=== PATIENT | female | born 1995 | race Hispanic/Latino ===

== ENCOUNTER 2019-03-17 09:37 | Emergency (ER) | payer BC, OTHER ==
[2019-03-17 10:20] LABS: Urine Bacteria 20-50 /HPF (<20); Urine Culture Reflex Order REFLEXED; Urine RBC <5 /HPF (NONE SEEN)
[2019-03-17 10:21] LABS: Urine Amorphous Sediment 3+ /HPF (NONE SEEN)
[2019-03-17 10:21] LABS: Urine Blood 1+ (NEG); Urine Glucose NEGATIVE (NEG); Urine Protein 1+ (NEG); Urine Specific Gravity 1.025 (1.005-1.030); Urine pH 7.5 (5.0-7.0)
--- NOTE | 2019-03-17 10:34 | ER ---
Nurse's Notes [facility] Name: Letty Carrizales Age: 23 yrs Sex: Female : 1995 Arrival Date: 03/17/2019 Time: 09:42 Bed 16 Private MD: Diagnosis: Lower abdominal pain, unspecified;Irregular menstruation, unspecified Presentation: 03/17 09:48 Presenting complaint: Patient states: when i woke up this AM around 6:30 am; i have hj sharp pain on my lower stomach, im bleeding a little bit; LMP- 03/01/19; denies diarrhea, denies N/V;. Transition of care: patient was not received from another setting of care. Onset of symptoms was March 17, 2019. Risk Assessment: Do you want to hurt yourself or someone else? Patient reports no desire to harm self or others. Initial Sepsis Screen: Does the patient meet any 2 criteria? No. Patient's initial sepsis screen is negative. Does the patient have a suspected source of infection? No. Patient's initial sepsis screen is negative. Care prior to arrival: None. 09:48 Method Of Arrival: Ambulatory 09:48 Acuity: TIFFANY 3 hj GEOTECHNICAL INTERN: 09:49 LMP 03/01/2019 Historical: - Allergies: 09:49 No Known Allergies; hj - PMHx: 09:49 None; hj - PSHx: 09:49 None; hj - Immunization history:: Adult Immunizations unknown. - Social history:: Smoking status: unknown. - Ebola Screening: : No symptoms or risks identified at this time. Screenin:00 Abuse screen: Denies threats or abuse. Denies injuries from another. Nutritional ph screening: No deficits noted. Tuberculosis screening: No symptoms or risk factors identified. Fall Risk None identified. Assessment: 10:00 General: Appears in no apparent distress. comfortable, well groomed, Behavior is calm, ph cooperative, appropriate for age, Denies fever, feeling ill. Pain: Complains of pain in suprapubic area Pain does not radiate. Neuro: Level of Consciousness is awake, alert, obeys commands, Oriented to person, place, time, situation. Cardiovascular: Capillary refill < 3 seconds in bilateral fingers Patient's skin is warm and dry. Respiratory: Airway is patent Respiratory effort is even, unlabored. GI: Abdomen is round non-distended, Bowel sounds present X 4 quads. Abd is soft and non tender Reports lower abdominal pain, Patient currently denies constipation, diarrhea, nausea, vomiting. : Reports pain in suprapubic area vaginal bleeding that is light flow, Denies burning with urination, discharge, urinary frequency. Derm: Skin is intact, is healthy with good turgor, Skin is pink, warm \T\ dry. Musculoskeletal: Circulation, motion, and sensation intact. Range of motion: intact in all extremities. Vital Signs: 09:49 BP 116 / 58; Pulse 64; Resp 18; Temp 98.4(O); Pulse Ox 100% on R/A; Weight 74.84 kg; hj Height 5 ft. 6 in. (167.64 cm); Pain 4/10; 09:49 Body Mass Index 26.63 (74.84 kg, 167.64 cm) ED Course: 09:42 Patient arrived in ED. mr 09:49 Triage completed. hj 09:49 Arm band placed on right wrist. hj 09:53 Jacqueline Johnson F[facility]-C [facility]. kb 09:53 Roque Mancuso MD is Attending Physician. kb 09:55 Priscilla Gutierrez, RN is Primary Nurse. ph 10:00 Patient has correct armband on for positive identification. Bed in low position. Call ph light in reach. Side rails up X 1. Pulse ox on. NIBP on. 10:45 No provider procedures requiring assistance completed. Patient did not have IV access ph during this emergency room visit. Administered Medications: No medications were administered Outcome: 10:33 Discharge ordered by . kb 10:46 Patient left the ED. ph 10:46 Discharged to home ambulatory, with significant other. ph 10:46 Condition: good 10:46 Discharge instructions given to patient, Instructed on discharge instructions, follow up and referral plans. Demonstrated understanding of instructions, follow-up care. Signatures: Jacqueline Johnson FNP-C FNP-Marina Madelaine Palafox mr Priscilla Gutierrez, RN RN José Antonio Hooper RN RN
--- NOTE | 2019-03-17 10:34 | EDPHYS ---
Physician Documentation [facility] Name: Letty Carrizales Age: 23 yrs Sex: Female : 1995 Arrival Date: 03/17/2019 Time: 09:42 Bed 16 Private MD: ED Physician Roque Mancuso HPI: 03/17 10:00 This 23 yrs old Female presents to ER via Ambulatory with complaints of kb Abdominal Pain. 10:00 The patient presents with abdominal pain in the lower abdomen. Onset: The kb symptoms/episode began/occurred this morning, at 06:30. The symptoms do not radiate. Associated signs and symptoms: Pertinent positives: vaginal bleeding, Pertinent negatives: nausea, vomiting, and diarrhea, anorexia, blood in stools, chest pain, constipation, dysuria, fever, headache, hematuria, palpitations, shortness of breath, vomiting, vomiting blood. The symptoms are described as crampy. Modifying factors: The symptoms are alleviated by nothing, the symptoms are aggravated by nothing. Severity of pain: At its worst the pain was moderate in the emergency department the pain has improved moderately. The patient has not experienced similar symptoms in the past. The patient has not recently seen a physician. Pt states "I went to the restroom this morning, had a sharp pain to lower abd and noticed some bleeding. I know it's not my period because I had it 2 weeks ago. Now the pain is just a little cramping.". 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 - Social history:: Smoking status: unknown. - Ebola Screening: : No symptoms or risks identified at this time. ROS: 09:59 Constitutional: Negative for fever, chills, and weight loss, ENT: Negative for injury, kb pain, and discharge, Neck: Negative for injury, pain, and swelling, Cardiovascular: Negative for chest pain, palpitations, and edema, Respiratory: Negative for shortness of breath, cough, wheezing, and pleuritic chest pain, Back: Negative for injury and pain, MS/Extremity: Negative for injury and deformity, Skin: Negative for injury, rash, and discoloration, Neuro: Negative for headache, weakness, numbness, tingling, and seizure. 09:59 Abdomen/GI: Positive for abdominal pain, Negative for nausea, vomiting, and diarrhea, constipation, abdominal distension, anorexia. 09:59 : Positive for vaginal bleeding. Exam: 09:59 Constitutional: This is a well developed, well nourished patient who is awake, alert, kb and in no acute distress. Head/Face: Normocephalic, atraumatic. ENT: Nares patent. No nasal discharge, no septal abnormalities noted. Tympanic membranes are normal and external auditory canals are clear. Oropharynx with no redness, swelling, or masses, exudates, or evidence of obstruction, uvula midline. Mucous membranes moist. Neck: Trachea midline, no thyromegaly or masses palpated, and no cervical lymphadenopathy. Supple, full range of motion without nuchal rigidity, or vertebral point tenderness. No Meningismus. Chest/axilla: Normal chest wall appearance and motion. Nontender with no deformity. No lesions are appreciated. Cardiovascular: Regular rate and rhythm with a normal S1 and S2. No gallops, murmurs, or rubs. Normal PMI, no JVD. No pulse deficits. Respiratory: Lungs have equal breath sounds bilaterally, clear to auscultation and percussion. No rales, rhonchi or wheezes noted. No increased work of breathing, no retractions or nasal flaring. Back: No spinal tenderness. No costovertebral tenderness. Full range of motion. Skin: Warm, dry with normal turgor. Normal color with no rashes, no lesions, and no evidence of cellulitis. MS/ Extremity: Pulses equal, no cyanosis. Neurovascular intact. Full, normal range of motion. Neuro: Awake and alert, GCS 15, oriented to person, place, time, and situation. Cranial nerves II-XII grossly intact. Motor strength 5/5 in all extremities. Sensory grossly intact. Cerebellar exam normal. Normal gait. 09:59 Abdomen/GI: Inspection: abdomen appears normal, Bowel sounds: normal, in all quadrants, Palpation: soft, in all quadrants, mild abdominal tenderness, in the suprapubic area. Vital Signs: 09:49 BP 116 / 58; Pulse 64; Resp 18; Temp 98.4(O); Pulse Ox 100% on R/A; Weight 74.84 kg; hj Height 5 ft. 6 in. (167.64 cm); Pain /; 09:49 Body Mass Index 26.63 (74.84 kg, 167.64 cm) hj MDM: 09:53 Patient medically screened. kb 10:00 Data reviewed: vital signs, nurses notes. Data interpreted: Pulse oximetry: on room air kb is 100 %. Interpretation: acceptable. 10:32 Counseling: I had a detailed discussion with the patient and/or guardian regarding: the kb historical points, exam findings, and any diagnostic results supporting the discharge/admit diagnosis, lab results, the need for outpatient follow up, an OB/Gyne specialist, to return to the emergency department if symptoms worsen or persist or if there are any questions or concerns that arise at home. 03/17 09:53 Order name: Urine Microscopic Only; Complete Time: 10:27 kb 03/17 10:14 Order name: Urine Dipstick--Ancillary (enter results); Complete Time: 10: kb 03/17 09:53 Order name: Urine Test (obtain specimen); Complete Time: 10:03 kb 03/17 09:53 Order name: Urine Dipstick-Ancillary (obtain specimen); Complete Time: 10: kb 03/17 10:14 Order name: Urine --Ancillary (enter results); Complete Time: 10: kb 03/17 10:28 Order name: Urine Culture EDMS Administered Medications: No medications were administered Disposition: 10:56 Co-signature as Attending Physician, Roque Mancuso MD. rn Disposition: 03/17/19 10:33 Discharged to Home. Impression: Lower abdominal pain, unspecified, Irregular menstruation, unspecified. - Condition is Stable. - Discharge Instructions: Abdominal Pain, Adult, [id number], Abnormal Uterine Bleeding, [id number]. - Medication Reconciliation Form, Thank You Letter, Antibiotic Education, Prescription Opioid Use, Work release form form. - Follow up: Emergency Department; When: As needed; Reason: Worsening of condition. Follow up: Private Physician; When: 2 - 3 days; Reason: Recheck today's complaints, Continuance of care, Re-evaluation by your physician. Signatures: Dispatcher [employer] EDCT Jacqueline Johnson, SPRIGGER-C SPRIGGER-Roque Sanz MD MD rn Hall, Patricia, RN RN ph José Antonio Hooper RN RN Corrections: (The following items were deleted from the chart) 10:33 10:33 03/17/2019 10:33 Discharged to Home. Impression: Lower abdominal pain, kb unspecified. Condition is Stable. Forms are Medication Reconciliation Form, Thank You Letter, Antibiotic Education, Prescription Opioid Use. Follow up: Emergency Department; When: As needed; Reason: Worsening of condition. Follow up: Private Physician; When: 2 - 3 days; Reason: Recheck today's complaints, Continuance of care, Re-evaluation by your physician. kb 10:46 10:33 03/17/2019 10:33 Discharged to Home. Impression: Lower abdominal pain, ph unspecified; Irregular menstruation, unspecified. Condition is Stable. Forms are Medication Reconciliation Form, Thank You Letter, Antibiotic Education, Prescription Opioid Use. Follow up: Emergency Department; When: As needed; Reason: Worsening of condition. Follow up: Private Physician; When: 2 - 3 days; Reason: Recheck today's complaints, Continuance of care, Re-evaluation by your physician. kb
[2019-03-17 11:56] VITALS: TEMP 98.4
[2019-03-17 12:04] VITALS: BP 121/85; O2SAT 99
== END 2019-03-17 10:46 | disposition home or self-care (01) ==
LOC: ER 09:37
DX: N92.6 Irregular menstruation, unspecified (principal)
CPT/HCPCS: 81003; 81015; 81025; 87086; 87088; 99283

== ENCOUNTER 2019-04-09 08:11 | Emergency (ER) | payer BC ==
[2019-04-09] MEDS ORDERED: ONDANSETRON 4 MG (ODT) TAB ONE (10:03)
[2019-04-09 11:41] LABS: Urine Bacteria <20 /HPF (<20); Urine Culture Reflex Order NOT NEEDED; Urine RBC NONE SEEN /HPF (NONE SEEN)
--- NOTE | 2019-04-09 11:56 | EDPHYS ---
Physician Documentation [facility] Name: Letty Carrizales Age: 23 yrs Sex: Female : 1995 Arrival Date: 04/09/2019 Time: 08:12 Bed 14 Private MD: ED Physician Roque Mancuso HPI: 04/09 09:44 This 23 yrs old Female presents to ER via Ambulatory with complaints of jr8 Headache, Nausea, Sore Throat. 09:44 The patient presents with sore throat. The patient describes throat pain as raw, jr8 scratchy. Onset: The symptoms/episode began/occurred acutely, 3 day(s) ago. The patient presents to the emergency department with nausea, vomiting, that is intermittent. Onset: The symptoms/episode began/occurred acutely, 3 day(s) ago. Possible causes: unknown. The symptoms are aggravated by food , The symptoms are alleviated by nothing. Severity of symptoms: At their worst the symptoms were moderate, in the emergency department the symptoms are unchanged. Associated signs and symptoms: Pertinent positives: dysuria, headache, back pain, Pertinent negatives: abdominal pain, diarrhea, fever, vaginal discharge. Modifying factors: Patient's oral intake status: unable to tolerate foods, limited fluid intake. Associated signs and symptoms:. The patient has not experienced similar symptoms in the past. The patient has not recently seen a physician. sore throat, vomiting, and headache x 3 days, denies fever. 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 - Social history:: Smoking status: Patient/guardian denies using tobacco, Patient/guardian denies using alcohol, street drugs. - Ebola Screening: : Patient negative for fever greater than or equal to 101.5 degrees Fahrenheit, and additional compatible Ebola Virus Disease symptoms Patient denies exposure to infectious person Patient denies travel to an Ebola-affected area in the 21 days before illness onset No symptoms or risks identified at this time. ROS: 09:44 Constitutional: Negative for fever, chills, and weight loss, Eyes: Negative for injury, jr8 pain, redness, and discharge, Neck: Negative for injury, pain, and swelling, Cardiovascular: Negative for chest pain, palpitations, and edema, Respiratory: Negative for shortness of breath, cough, wheezing, and pleuritic chest pain, MS/Extremity: Negative for injury and deformity, Skin: Negative for injury, rash, and discoloration, Neuro: Negative for headache, weakness, numbness, tingling, and seizure. 09:44 ENT: Positive for sore throat, Negative for ear pain, Teeth pain sinus congestion, dental pain. 09:44 Abdomen/GI: Positive for nausea, vomiting, Negative for diarrhea, constipation, black/tarry stool, rectal pain, rectal bleeding. 09:44 Back: Negative for injury or acute deformity, decreased range of motion. Exam: 09:44 Constitutional: This is a well developed, well nourished patient who is awake, alert, jr8 and in no acute distress. Head/Face: Normocephalic, atraumatic. Eyes: Pupils equal round and reactive to light, extra-ocular motions intact. Lids and lashes normal. Conjunctiva and sclera are non-icteric and not injected. Cornea within normal limits. Periorbital areas with no swelling, redness, or edema. Cardiovascular: Regular rate and rhythm with a normal S1 and S2. No gallops, murmurs, or rubs. Normal PMI, no JVD. No pulse deficits. Respiratory: Lungs have equal breath sounds bilaterally, clear to auscultation and percussion. No rales, rhonchi or wheezes noted. No increased work of breathing, no retractions or nasal flaring. Back: No spinal tenderness. No costovertebral tenderness. Full range of motion. Skin: Warm, dry with normal turgor. Normal color with no rashes, no lesions, and no evidence of cellulitis. MS/ Extremity: Pulses equal, no cyanosis. Neurovascular intact. Full, normal range of motion. Neuro: Awake and alert, GCS 15, oriented to person, place, time, and situation. Cranial nerves II-XII grossly intact. Motor strength 5/5 in all extremities. Sensory grossly intact. Cerebellar exam normal. Normal gait. 09:44 ENT: External ear(s): are unremarkable, Ear canal(s): are normal, TM's: are normal, Nose: is normal, Mouth: Lips: normal, moist, Oral mucosa: pink and intact, moist, Posterior pharynx: Airway: normal, no evidence of obstruction, Tonsils: bilaterally enlarged, with erythema, with exudate. 09:44 Neck: External neck: is normal, C-spine: appears grossly normal, Lymph nodes: lymphadenopathy is appreciated, anterior cervical nodes. 09:44 Abdomen/GI: Inspection: abdomen appears normal, Bowel sounds: normal, Palpation: abdomen is soft and non-tender, in all quadrants. Vital Signs: 08:55 BP 109 / 78; Pulse 95; Resp 16; Temp 97.4(O); Pulse Ox 100% on R/A; Weight 77.11 kg; ch Height 5 ft. 6 in. (167.64 cm); Pain 5/10; 10:49 BP 110 / 64; Pulse 89; Resp 15; Pulse Ox 99% ; aj 12:03 BP 111 / 60; Pulse 85; Resp 16; Pulse Ox 99% on R/A; aj 08:55 Body Mass Index 27.44 (77.11 kg, 167.64 cm) ch MDM: 09:36 Patient medically screened. 8 09:44 Differential diagnosis: gastritis, viral gastroenteritis, group A strep tonsillitis, jr8 mononucleosis, peritonsillar abscess pharyngitis, tonsillitis, viral syndrome. 11:34 Data reviewed: vital signs, nurses notes, lab test result(s), and as a result, I will jr8 discharge patient. Data interpreted: Pulse oximetry: on room air is 99 %. Interpretation: normal. Counseling: I had a detailed discussion with the patient and/or guardian regarding: the historical points, exam findings, and any diagnostic results supporting the discharge/admit diagnosis, lab results, the need for outpatient follow up, a family practitioner, to return to the emergency department if symptoms worsen or persist or if there are any questions or concerns that arise at home. 04/09 09:44 Order name: Strep; Complete Time: 10:21 jr8 04/09 10:03 Order name: Urine Microscopic Only; Complete Time: 11:46 iw 04/09 10:11 Order name: Urine Dipstick--Ancillary (enter results) bd 04/09 10:11 Order name: Urine --Ancillary (enter results) bd 04/09 10:24 Order name: [place] Screen Profile; Complete Time: 11:34 [facility] 04/09 10:25 Order name: Throat Culture [facility] 04/09 09:44 Order name: Urine Dipstick-Ancillary (obtain specimen); Complete Time: 10:29 jr8 04/09 09:44 Order name: Urine Test (obtain specimen); Complete Time: 10:30 Administered Medications: 09:50 Drug: Zofran 4 mg Route: PO; aj 10:29 Follow up: Response: Nausea is decreased Disposition: 15:57 Co-signature as Attending Physician, Roque Mancuso MD. rn Disposition: 04/09/19 11:54 Discharged to Home. Impression: Acute pharyngitis. - Condition is Stable. - Discharge Instructions: Pharyngitis, Urinary Tract Infection, Adult. - Prescriptions for Augmentin 875- 125 mg Oral Tablet - take 1 tablet by ORAL route every 12 hours for 10 days; 20 tablet. Zofran 4 mg Oral Tablet - take 1 tablet by ORAL route every 12 hours As needed; 20 tablet. - Work release form, Medication Reconciliation Form, Thank You Letter, Antibiotic Education, Prescription Opioid Use form. - Follow up: Private Physician; When: 2 - 3 days; Reason: Recheck today's complaints, Continuance of care, Re-evaluation by your physician. - Problem is new. - Symptoms have improved. Signatures: Dispatcher [employer] [facility] Chelsey Thomas RN RN ch Myers, Amanda, RN RN aj Nieto, Roman, MD MD rn Roszak, Josh, PA PA jr8 Corrections: (The following items were deleted from the chart) 12:09 11:54 04/09/2019 11:54 Discharged to Home. Impression: Acute pharyngitis. Condition is aj Stable. Discharge Instructions: Pharyngitis, Urinary Tract Infection, Adult. Prescriptions for Augmentin 875-125 mg Oral Tablet - take 1 tablet by ORAL route every 12 hours for 10 days; 20 tablet, Zofran 4 mg Oral Tablet - take 1 tablet by ORAL route every 12 hours As needed; 20 tablet. and Forms are Medication Reconciliation Form, Thank You Letter, Antibiotic Education, Prescription Opioid Use. Follow up: Private Physician; When: 2 - 3 days; Reason: Recheck today's complaints, Continuance of care, Re-evaluation by your physician. Problem is new. Symptoms have improved. jr8
--- NOTE | 2019-04-09 11:56 | ER ---
Nurse's Notes [facility] Name: Letty Carrizales Age: 23 yrs Sex: Female : 1995 Arrival Date: 04/09/2019 Time: 08:12 Bed 14 Private MD: Diagnosis: Acute pharyngitis Presentation: 04/09 08:56 Presenting complaint: Patient states: headache, nausea, vomiting for three days, now ch having lower back pain. Transition of care: patient was not received from another setting of care. Onset of symptoms was April 06, 2019. Risk Assessment: Do you want to hurt yourself or someone else? Patient reports no desire to harm self or others. Initial Sepsis Screen: Does the patient meet any 2 criteria? No. Patient's initial sepsis screen is negative. Does the patient have a suspected source of infection? No. Patient's initial sepsis screen is negative. Care prior to arrival: None. 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 - Social history:: Smoking status: Patient/guardian denies using tobacco, Patient/guardian denies using alcohol, street drugs. - Ebola Screening: : Patient negative for fever greater than or equal to 101.5 degrees Fahrenheit, and additional compatible Ebola Virus Disease symptoms Patient denies exposure to infectious person Patient denies travel to an Ebola-affected area in the 21 days before illness onset No symptoms or risks identified at this time. Screenin:51 Abuse screen: Denies threats or abuse. Denies injuries from another. Nutritional aj screening: No deficits noted. Tuberculosis screening: No symptoms or risk factors identified. Fall Risk None identified. Assessment: 09:51 General: Appears in no apparent distress. comfortable, Behavior is calm, cooperative, aj appropriate for age. Pain: Complains of pain in left aspect of posterior pharynx and right aspect of posterior pharynx. Neuro: Level of Consciousness is awake, alert, obeys commands, Oriented to person, place, time, situation, Appropriate for age. Respiratory: Airway is patent Respiratory effort is even, unlabored, Respiratory pattern is regular, symmetrical. EENT: Reports pain when swallowing. Derm: Skin is intact, is healthy with good turgor, Skin is pink, warm \T\ dry. normal. 12:03 Reassessment: Patient appears in no apparent distress at this time. No changes from aj previously documented assessment. Patient and/or family updated on plan of care and expected duration. Pain level reassessed. Patient is alert, oriented x 3, equal unlabored respirations, skin warm/dry/pink. Patient states feeling better. Vital Signs: 08:55 BP 109 / 78; Pulse 95; Resp 16; Temp 97.4(O); Pulse Ox 100% on R/A; Weight 77.11 kg; Height 5 ft. 6 in. (167.64 cm); Pain 5/10; 10:49 BP 110 / 64; Pulse 89; Resp 15; Pulse Ox 99% ; aj 12:03 BP 111 / 60; Pulse 85; Resp 16; Pulse Ox 99% on R/A; aj 08:55 Body Mass Index 27.44 (77.11 kg, 167.64 cm) ED Course: 08:12 Patient arrived in ED. as 08:57 Triage completed. 08:57 Arm band placed on left wrist. Patient placed in waiting room. 09:36 Rory Chapin PA is PHCP. jr8 09:36 Roque Mancuso MD is Attending Physician. jr8 09:41 Carrol Mcclendon, RN is Primary Nurse. aj 09:51 Patient has correct armband on for positive identification. aj 09:51 Strep Sent. aj 09:51 No provider procedures requiring assistance completed. Strep swab sent to lab. aj 12:03 IV discontinued, intact, bleeding controlled, No redness/swelling at site. Pressure aj dressing applied. Administered Medications: 09:50 Drug: Zofran 4 mg Route: PO; aj 10:29 Follow up: Response: Nausea is decreased aj Outcome: 11:54 Discharge ordered by . jr8 12:03 Discharged to home ambulatory. aj 12:03 Condition: good 12:03 Discharge instructions given to patient, Instructed on discharge instructions, follow up and referral plans. medication usage, Demonstrated understanding of instructions, follow-up care, medications, Prescriptions given X 2. 12:09 Patient left the ED. aj Signatures: Chelsey Thomas RN RN ch Myers, Amanda, RN RN aj Martinez, Amelia as Roszak, Josh, PA PA jr8
[2019-04-09 12:39] VITALS: TEMP 97.4
[2019-04-09 12:41] VITALS: O2SAT 99
[2019-04-09 12:42] VITALS: BP 111/60
[2019-04-09 13:10] LABS: Urine Blood NEGATIVE (NEG); Urine Glucose NEGATIVE (NEG); Urine Protein 1+ (NEG); Urine Specific Gravity 1.025 (1.005-1.030); Urine pH 5.5 (5.0-7.0)
== END 2019-04-09 12:09 | disposition home or self-care (01) ==
LOC: ER 08:11
DX: J02.9 Acute pharyngitis, unspecified (principal); R11.2 Nausea with vomiting, unspecified
CPT/HCPCS: 36415; 81003; 81015; 81025; 86308; 87070; 87081; 99283

== ENCOUNTER 2019-10-21 21:43 | Emergency (ER) | payer BC ==
[2019-10-21 23:02] LABS: Urine Bacteria <20 /HPF (<20); Urine Culture Reflex Order NOT NEEDED; Urine Mucus 4+ /HPF (NONE SEEN); Urine RBC <5 /HPF (NONE SEEN); Urine Urothelial Cells <5 /HPF (NONE SEEN)
[2019-10-21 23:03] LABS: Urine Blood NEGATIVE (NEG); Urine Glucose NEGATIVE (NEG); Urine Protein 2+ (NEG); Urine Specific Gravity >1.030 (1.005-1.030)
[2019-10-21] MEDS ORDERED: NA CHLORIDE 0.9% 1,000 ML ONE (23:15)
[2019-10-21] MEDS ORDERED: ONDANSETRON 4 MG/2 ML VIAL ONE (23:15)
[2019-10-21 23:32] LABS: Absolute Lymphocytes (CBC) 1.9 K/uL (0.7-4.9); Basophils % 0.2 % (0-1.3); Hematocrit 40.5 % (36.0-45.0); Lymphocytes % 18.2 % (15.3-44.8); MPV 10.5 fL (7.6-11.3)
[2019-10-21 23:43] LABS: ALT/SGPT 19 U/L (12-78); AST/SGOT 10 U/L (15-37); Albumin 4.2 g/dL (3.4-5.0); Alkaline Phosphatase 63 U/L (45-117); BUN Blood Urea Nitrogen 11 mg/dL (7-18); Bicarbonate 22 mmol/L (21-32); Bilirubin Direct 0.1 mg/dL (0-0.2); Bilirubin Total 0.6 mg/dL (0.2-1.0); Glucose Level 96 mg/dL (74-106); Lipase 119 U/L (73-393); Potassium 3.8 mmol/L (3.5-5.1); Protein, Total 8.2 g/dL (6.4-8.2); Sodium Level 137 mmol/L (136-145)
--- NOTE | 2019-10-22 00:12 | ER ---
Nurse's Notes [facility] Name: Letty Carrizales Age: 24 yrs Sex: Female : 1995 Arrival Date: 10/21/2019 Time: 21:44 Bed 24 Private MD: Diagnosis: Vomiting of , unspecified;Dehydration Presentation: 10/21 22:01 Presenting complaint: Patient states: Vomiting since yesterday but off and on for the ca1 last 2 weeks, this time can't keep any liquid down. Denies fever, abdominal pain, diarrhea. Transition of care: patient was not received from another setting of care. Onset of symptoms was October 21, 2019. Risk Assessment: Do you want to hurt yourself or someone else? Patient reports no desire to harm self or others. Initial Sepsis Screen: Does the patient meet any 2 criteria? No. Patient's initial sepsis screen is negative. Does the patient have a suspected source of infection? No. Patient's initial sepsis screen is negative. Care prior to arrival: None. 22:01 Method Of Arrival: Ambulatory ca1 22:01 Acuity: TIFFANY 3 ca1 RESIDENT CARE COORDINATOR: 23:30 Verified vc Historical: - Allergies: 22:03 Amoxicillin; ca1 - PMHx: 22:03 None; ca1 - PSHx: 22:03 None; ca1 - Immunization history:: Adult Immunizations up to date. - Coronavirus screen:: The patient has NOT traveled to [place], [place], or [place] in the past 14 days. The patient has NOT had contact with known/suspected case of Coronavirus?. - Social history:: Smoking status: Patient denies any tobacco usage or history of. - Ebola Screening: : Patient negative for fever greater than or equal to 101.5 degrees Fahrenheit, and additional compatible Ebola Virus Disease symptoms Patient denies exposure to infectious person Patient denies travel to an Ebola-affected area in the 21 days before illness onset No symptoms or risks identified at this time. Screenin:30 Abuse screen: Denies threats or abuse. Nutritional screening: Has had N/V for 3 or more vc days. Tuberculosis screening: No symptoms or risk factors identified. Fall Risk None identified. Assessment: 22:30 General: Appears in no apparent distress. uncomfortable, ill, Behavior is calm, vc cooperative, appropriate for age. Pain: Denies pain. Neuro: Level of Consciousness is awake, alert, obeys commands, Oriented to person, place, time. Cardiovascular: Capillary refill < 3 seconds Patient's skin is warm and dry. Respiratory: Airway is patent Respiratory effort is even, unlabored. GI: Pt is actively vomiting clear fluid. : Urine is clear, cloudy. EENT: No signs and/or symptoms were reported regarding the EENT system. Derm: Skin temperature is warm. Musculoskeletal: Circulation, motion, and sensation intact. Range of motion: intact in all extremities. 23:29 Reassessment: Patient and/or family updated on plan of care and expected duration. Pain vc level reassessed. Patient is alert, oriented x 3, equal unlabored respirations, skin warm/dry/pink. Patient denies pain at this time. 10/22 00:15 Reassessment: Patient and/or family updated on plan of care and expected duration. Pain vc level reassessed. Patient is alert, oriented x 3, equal unlabored respirations, skin warm/dry/pink. Patient denies pain at this time. Patient states symptoms have improved. Vital Signs: 10/21 22:03 BP 100 / 66; Pulse 91; Resp 17 S; Temp 98.2(O); Pulse Ox 99% on R/A; Weight 74.84 kg ca1 (R); Height 5 ft. 6 in. (167.64 cm) (R); 10/22 00:00 BP 105 / 63; Pulse 75; Resp 18; Pulse Ox 99% on R/A; vc 10/21 22:03 Body Mass Index 26.63 (74.84 kg, 167.64 cm) ca1 ED Course: 10/21 21:44 Patient arrived in ED. jg7 22:02 Triage completed. ca1 22:03 Arm band placed on right wrist. ca1 22:09 Cliff Simeon MD is Attending Physician. tw4 22:17 Sonya Reis, SANJEEV is Primary Nurse. vc 22:30 Patient has correct armband on for positive identification. vc 22:30 Inserted saline lock: 24 gauge in right forearm, using aseptic technique. Blood vc collected. 10/22 00:24 No provider procedures requiring assistance completed. IV discontinued, intact, vc bleeding controlled, No redness/swelling at site. Pressure dressing applied. Administered Medications: 10/21 23:15 Drug: NS 0.9% 1000 ml Route: IV; Rate: 1 bolus; Site: right upper arm; vc 10/22 00:20 Follow up: IV Status: Completed infusion vc 10/21 23:15 Drug: Zofran 4 mg Route: IVP; Site: right upper arm; vc 23:26 Follow up: Response: No adverse reaction vc Outcome: 10/22 00:11 Discharge ordered by . mayi 00:24 Discharged to home ambulatory, with significant other. vc 00:24 Condition: good 00:24 Discharge instructions given to patient, significant other, Instructed on discharge instructions, follow up and referral plans. the need for admit, Demonstrated understanding of instructions, follow-up care, medications, Prescriptions given X 1. 00:25 Patient left the ED. vc Signatures: Cliff Simeon MD MD tw4 Vianca Palacios RN RN Angelita Guerrag7 Sonya Reis RN RN vc
--- NOTE | 2019-10-22 00:13 | EDPHYS ---
Physician Documentation [facility] Name: Letty Carrizales Age: 24 yrs Sex: Female : 1995 Arrival Date: 10/21/2019 Time: 21:44 Bed 24 Private MD: ED Physician Cliff Simeon HPI: 10/22 02:57 This 24 yrs old Female presents to ER via Ambulatory with complaints of tw4 Vomiting, 10 WKS . 02:57 The patient presents to the emergency department with nausea, vomiting. Onset: The tw4 symptoms/episode began/occurred 2 week(s) ago, and became worse yesterday. Possible causes: . The symptoms are aggravated by nothing. The symptoms are alleviated by nothing. Associated signs and symptoms: The patient has no apparent associated signs or symptoms. Severity of symptoms: At their worst the symptoms were moderate in the emergency department the symptoms are unchanged. The patient has not experienced similar symptoms in the past. [employer]: 10/21 23:30 Verified vc Historical: - Allergies: 22:03 Amoxicillin; ca1 - PMHx: 22:03 None; ca1 - PSHx: 22:03 None; ca1 - Immunization history:: Adult Immunizations up to date. - Coronavirus screen:: The patient has NOT traveled to [place], [place], or [place] in the past 14 days. The patient has NOT had contact with known/suspected case of Coronavirus?. - Social history:: Smoking status: Patient denies any tobacco usage or history of. - Ebola Screening: : Patient negative for fever greater than or equal to 101.5 degrees Fahrenheit, and additional compatible Ebola Virus Disease symptoms Patient denies exposure to infectious person Patient denies travel to an Ebola-affected area in the 21 days before illness onset No symptoms or risks identified at this time. ROS: 10/22 02:57 Constitutional: Negative for fever, chills, and weight loss, Eyes: Negative for injury, tw4 pain, redness, and discharge, ENT: Negative for injury, pain, and discharge, Cardiovascular: Negative for chest pain, palpitations, and edema, Respiratory: Negative for shortness of breath, cough, wheezing, and pleuritic chest pain, Back: Negative for injury and pain, MS/Extremity: Negative for injury and deformity, Skin: Negative for injury, rash, and discoloration, Neuro: Negative for headache, weakness, numbness, tingling, and seizure. Abdomen/GI: Positive for nausea and vomiting, nausea, vomiting, Negative for abdominal pain, nausea, vomiting, and diarrhea, diarrhea, constipation, abdominal cramps, abdominal distension, anorexia, dysphagia, hematemesis, black/tarry stool, rectal pain, rectal bleeding. Exam: 02:57 Constitutional: This is a well developed, well nourished patient who is awake, alert, tw4 and in no acute distress. Head/Face: Normocephalic, atraumatic. Chest/axilla: Normal chest wall appearance and motion. Nontender with no deformity. No lesions are appreciated. Cardiovascular: Regular rate and rhythm with a normal S1 and S2. No gallops, murmurs, or rubs. Normal PMI, no JVD. No pulse deficits. Respiratory: Lungs have equal breath sounds bilaterally, clear to auscultation and percussion. No rales, rhonchi or wheezes noted. No increased work of breathing, no retractions or nasal flaring. Abdomen/GI: Soft, non-tender, with normal bowel sounds. No distension or tympany. No guarding or rebound. No evidence of tenderness throughout. Back: No spinal tenderness. No costovertebral tenderness. Full range of motion. MS/ Extremity: Pulses equal, no cyanosis. Neurovascular intact. Full, normal range of motion. Neuro: Awake and alert, GCS 15, oriented to person, place, time, and situation. Cranial nerves II-XII grossly intact. Motor strength 5/5 in all extremities. Sensory grossly intact. Cerebellar exam normal. Normal gait. Vital Signs: 10/21 22:03 BP 100 / 66; Pulse 91; Resp 17 S; Temp 98.2(O); Pulse Ox 99% on R/A; Weight 74.84 kg ca1 (R); Height 5 ft. 6 in. (167.64 cm) (R); 10/22 00:00 BP 105 / 63; Pulse 75; Resp 18; Pulse Ox 99% on R/A; vc 10/21 22:03 Body Mass Index 26.63 (74.84 kg, 167.64 cm) ca1 MDM: 10/21 22:43 Patient medically screened. tw4 10/22 02:58 Differential diagnosis: Nonspecific abd pain, gastritis, cholecystitis, pancreatitis. tw4 Data reviewed: vital signs, nurses notes. Data interpreted: Pulse oximetry: Interpretation: normal. Counseling: I had a detailed discussion with the patient and/or guardian regarding: the historical points, exam findings, and any diagnostic results supporting the discharge/admit diagnosis. Medication response: Zofran relieved the patient's nausea. Response to treatment: the patient's symptoms have resolved after treatment, and as a result, I will discharge patient. Special discussion: I discussed with the patient/guardian in detail that at this point there is no indication for admission to the hospital. It is understood, however, that if the symptoms persist or worsen the patient needs to return immediately for re-evaluation. 10/21 22:10 Order name: Basic Metabolic Panel; Complete Time: 00:07 10/22 00:08 Interpretation: Within normal limits. 10/21 22:10 Order name: CBC with Diff; Complete Time: 00:07 10/22 00:08 Interpretation: Normal except: MCV 84.4; MCH 29.4; RIYA% 76.7; NEUT A 8.1. 10/21 22:10 Order name: Creatinine for Radiology; Complete Time: 00:07 10/21 22:10 Order name: Hepatic Function; Complete Time: 00:07 10/22 00:08 Interpretation: Normal except: AST 10; GLOB 4.0. 10/21 22:10 Order name: Lipase; Complete Time: 00:07 10/22 00:08 Interpretation: Within normal limits: LIP 119. 10/21 22:10 Order name: Urine Microscopic Only; Complete Time: 23:07 10/21 23:07 Interpretation: Normal except: SQEPI 5-10; MUCUS 4+. 10/21 22:10 Order name: IV Saline Lock; Complete Time: 22:32 10/21 22:10 Order name: Labs collected and sent; Complete Time: 22:32 10/21 22:10 Order name: Urine Dipstick-Ancillary (obtain specimen); Complete Time: 22:32 10/21 22:43 Order name: Urine Dipstick--Ancillary (enter results); Complete Time: 23:07 [facility] 10/21 23:07 Interpretation: Normal except: UKET 3+; UPROT 2+. 4 10/21 22:43 Order name: Urine --Ancillary (enter results); Complete Time: 23:07 mw2 10/21 23:07 Interpretation: Normal except: URINE PREG POS. tw4 Administered Medications: 10/21 23:15 Drug: NS 0.9% 1000 ml Route: IV; Rate: 1 bolus; Site: right upper arm; vc 10/22 00:20 Follow up: IV Status: Completed infusion vc 10/21 23:15 Drug: Zofran 4 mg Route: IVP; Site: right upper arm; vc 23:26 Follow up: Response: No adverse reaction vc Disposition: 10/22/19 00:11 Discharged to Home. Impression: Vomiting of , unspecified, Dehydration. - Condition is Stable. - Discharge Instructions: Hyperemesis Gravidarum, Morning Sickness, [id number], Nausea and Vomiting, Adult, [id number]. - Prescriptions for Zofran 4 mg Oral Tablet - take 1 tablet by ORAL route every 12 hours As needed; 15 tablet. - Medication Reconciliation Form, Thank You Letter, Antibiotic Education, Prescription Opioid Use form. - Follow up: Private Physician; When: Upon discharge from the Emergency Department; Reason: Recheck today's complaints, Continuance of care. - Problem is new. - Symptoms have improved. Signatures: Dispatcher [employer] Cliff Rodney MD MD tw4 Vianca Palacios RN SANJEEV ca1 Sonya Reis RN RN vc Corrections: (The following items were deleted from the chart) 10/22 00:25 00:11 10/22/2019 00:11 Discharged to Home. Impression: Vomiting of , vc unspecified; Dehydration. Condition is Stable. Forms are Medication Reconciliation Form, Thank You Letter, Antibiotic Education, Prescription Opioid Use. Follow up: Private Physician; When: Upon discharge from the Emergency Department; Reason: Recheck today's complaints, Continuance of care. Problem is new. Symptoms have improved. tw4 02:57 02:57 The patient presents to the emergency department with nausea, diarrhea, tw4 tw4
[2019-10-22 00:40] VITALS: BP 100/66; TEMP 98.2; O2SAT 99
== END 2019-10-22 00:25 | disposition home or self-care (01) ==
LOC: ER 21:43
DX: O99.281 Endocrine, nutritional and metabolic diseases complicating pregnancy, first trimester (principal); E86.0 Dehydration; Z3A.10 10 weeks gestation of pregnancy; Z88.1 Allergy status to other antibiotic agents
CPT/HCPCS: 96361; 85025; 80048; 36415; 81025; 80076; 83690; 96374; 99284; J7030; J2405; 81003; 81015

== ENCOUNTER 2020-05-13 04:16 | Inpatient (IN) | payer OTHER ==
[~2020-05-13 04:16] MED LIST: BUTORPHANOL 1 MG/ML INJ IV PRN; CARBOPROST TROME 250 MCG/ML IM PRN; MEPERIDINE HCL 25 MG/ML SYR IV PRN; METHYLERGONOVINE 0.2MG/ML AMP IM PRN; MIDAZOLAM HCL 2 MG/2 ML INJ IV PRN; OXYTOCIN/LR 20 UNIT/1,000 ML BAG IV SCH; PROMETHAZINE INJ 25 MG/ML AMP IM PRN; Ringers Lactate 1,000 ML IV PRN
[2020-05-13] MEDS ORDERED: Ringers Lactate 1,000 ML IV SCH (04:30)
[2020-05-13 05:40] LABS: Urine Appearance CLOUDY; Urine Bilirubin NEGATIVE (NEG); Urine Blood 2+ (NEG); Urine Color YELLOW; Urine Glucose NEGATIVE (NEG); Urine Microscopic Reflex ORDER UMIC; Urine Protein 1+ (NEG); Urine Specific Gravity 1.025 (1.005-1.030); Urine Urobilinogen 0.2 mg/dL (0.2-1.0)
[2020-05-13 05:40] LABS: Absolute Lymphocytes (CBC) 1.8 K/uL (0.7-4.9); Basophils % 0.5 % (0-1.3); Hematocrit 31.6 % (36.0-45.0); Lymphocytes % 19.7 % (15.3-44.8); RBC Red Blood Cell Count 3.97 M/uL (3.86-4.86)
[2020-05-13 05:46] VITALS: BMI 30.6
[2020-05-13 05:54] LABS: Urine Culture Reflex Order REFLEXED; Urine Mucus SLIGHT /HPF (NONE SEEN)
[2020-05-13 05:55] LABS: Urine Bacteria <20 /HPF (<20); Urine RBC <5 /HPF (NONE SEEN); Urine Urothelial Cells <5 /HPF (NONE SEEN)
[2020-05-13] MEDS ORDERED: FENTANYL CITR 100 MCG/2 ML IV ONE (07:04)
[2020-05-13] MEDS ORDERED: ROPIVACAINE HCL 100 ML IV ONE ×2 (07:05→07:07)
[2020-05-13] MEDS ORDERED: ROPIVACAINE HCL 20 ML ONE (07:06)
[2020-05-13] MEDS ORDERED: ROPIVACAINE HCL 0.2% 20ML AMP IV ONE (07:06)
[2020-05-13] MEDS ORDERED: LIDOCAINE 1% MPF 30 ML VIAL ONE (07:09)
[2020-05-13] MEDS ORDERED: DIPHENHYDRAMINE 25 MG TAB/CAP PO PRN (08:15)
[2020-05-13] MEDS ORDERED: DOCUSATE NA/SENNA CONC 1 TAB PO PRN (08:15)
[2020-05-13] MEDS ORDERED: BISACODYL 10 MG RECTAL SUPP RC PRN (08:15)
[2020-05-13] MEDS ORDERED: ACETAMINOPHEN 500 MG TAB PO PRN (08:15)
[2020-05-13] MEDS ORDERED: Oxycodone HCl/Acetaminophen 1 TAB TAB PO PRN ×2 (08:15)
[2020-05-13] MEDS ORDERED: OXYTOCIN/LR 20 UNIT/1,000 ML BAG IV SCH (09:00)
--- NOTE | 2020-05-13 09:42 | PREOPHP ---
Date of Admission: 05/13/2020 A 24-year-old 2, para 1, 39 weeks' gestation, is now 6 cm, spontaneous rupture of membranes, clear fluid. Is progressing rapidly. She is being hydrated. Anesthesia has been notified for her e pidural. Rh positive, immune to rubella. Negative beta strep screen. Negative COVID screening. An ticipate rather rapid progress from this point forward. Admission talk given. MARGI/ROBBIE Voice ID: [id number]
--- NOTE | 2020-05-13 10:03 | OP ---
Surgeon: Hector Arzate MD A 24-year-old 2, para 1, 39 weeks, 3 cm in the office. This morning, the patient was 6 cm. She had spontaneously ruptured membranes, requested and received epidural anesthesia. Right after re ceiving epidural anesthesia, was noted to be complete, draped and prepped, 1 push, effective delivery of a 6 pounds plus female, very loose nuchal cord. Apgars 9 and 9. No episiotomy. No lacerations worthy of suturing. Schultze delivery of the placenta, which was inspected, noted to be heavily calc ified and an accessory lobe noted, otherwise normal. Estimated blood loss, less than 250 cc. Rh pos itive, immune to rubella. Beta strep screen negative. COVID screen negative. The patient tolerated all procedures well. Final Diagnoses: Term intrauterine , vaginal delivery, epidural anesthesia. Nuchal cord - loose. Accessory lobe of the placenta. MARGI/ROBBIE Voice ID: [id number] Report ID: [id number]
[2020-05-13] MEDS: IBUPROFEN 600 MG TAB PO PRN (19:05)
[2020-05-13 23:24] LABS: RPR (Rapid Plasma Reagin) NON-REACT (NON-REACT)
--- NOTE | 2020-05-14 06:58 | DS ---
Letty Carrizales is a 24-year-old 2, para 1, 39 weeks gestation, delivered a 6 pounds 2-ounce female, Apgars 9 and 9. No episiotomy. No lacerations. Schultze delivery of the placenta. Estimat ed blood loss 250 mL or less. Baby noted to have very loose nuchal cord and the placenta had an acce ssory lobe, but otherwise normal. Rh positive, immune to rubella. Negative beta strep screen. Nega tive COVID status. Post afebrile, ambulating and voiding. Lochia is normal. No post epidura l problems. Tdap has been offered during and again. Does not request any analgesics on di smissal. Full instructions given. Final Diagnoses: Term intrauterine . Vaginal delivery. Epidural anesthesia. Very loose n uchal cord. Accessory lobe of the placenta. Tdap offered. MARGI/ROBBIE Voice ID: [id number] Report ID: [id number]
[2020-05-14] MEDS: IBUPROFEN 600 MG TAB PO PRN (07:28)
[2020-05-14 08:06] VITALS: BP 135/71; TEMP 97.5
[2020-05-18 04:49] LABS: HBsAG Nonreactive (Nonreactive)
== END 2020-05-14 10:25 | disposition home or self-care (01) | DRG 807 ==
LOC: 2ND-WC 04:16
PROVIDERS: ADMIT Specialist; ATTEND Specialist
PROC: 10E0XZZ Delivery of Products of Conception, External Approach (ICD-10-PCS; principal; 2020-05-13)
PROC: 10E0XZZ Delivery of Products of Conception, External Approach (ICD-10-PCS; 2020-05-13)
DX: O80 Encounter for full-term uncomplicated delivery (principal); Z37.0 Single live birth; O43.193 Other malformation of placenta, third trimester; Z3A.39 39 weeks gestation of pregnancy; Z11.59 Encounter for screening for other viral diseases
CPT/HCPCS: 36415; 81003; 81015; 85025; 86592; 86850; 86900; 86901; 87086; 87088; 87340; J2210; J2590; J2795; J3010; J7120